=== PATIENT | male | born 1990 | race Caucasian/White ===

== ENCOUNTER 2019-01-22 01:48 | Emergency (ER) | payer OTHER, SELFPAY ==
[~2019-01-22] VITALS: Ht 165.1 cm; Wt 71.7 kg
[2019-01-22] MEDS ORDERED: medical marijuana (01:57)
[2019-01-22] MEDS ORDERED: ONDANSETRON 4MG/2ML VIAL (J2405) IV ONE (02:00)
[2019-01-22] MEDS ORDERED: ADACEL/BOOSTRIX VACCINE (DIPHTH/PERTUSS/ACELL/TETANUS)0.5ML SYR (90715) IM ONE (02:00)
[2019-01-22] MEDS ORDERED: ceFAZolin SOD 1 GM in D5W MINI-BAG PLUS 50 ML IV ONE (02:00)
[2019-01-22] MEDS ORDERED: albuterol inhaler INH (02:03)
[2019-01-22] MEDS: MORPHINE 4 MG/ML 1ML VIAL/SYRINGE (J2270) IV PRN ×2 (02:08→02:11)
[2019-01-22 02:17] LABS: HEMATOCRIT 41.9 % (42.0-52.0); HEMOGLOBIN 14.3 g/dl (13.5-17.5); MEAN CORPUSCULAR HEMOGLOBIN 30.3 pg (27.0-33.0); MEAN CORPUSCULAR HGB CONC 34.1 g/dl (32.0-36.5); MEAN CORPUSCULAR VOLUME 88.8 fl (80.0-96.0); PLATELET COUNT, AUTOMATED 330 10^3/uL (150-450); RED BLOOD COUNT 4.72 10^6/uL (4.30-6.10); WHITE BLOOD COUNT 11.9 10^3/uL (4.0-10.0)
[2019-01-22 02:36] LABS: BLOOD UREA NITROGEN 7 MG/DL (7-18); CALCIUM LEVEL 8.1 MG/DL (8.5-10.1); CARBON DIOXIDE LEVEL 21 MEQ/L (21-32); CHLORIDE LEVEL 109 MEQ/L (98-107); CREATININE FOR GFR 0.86 MG/DL (0.70-1.30); ETHYL ALCOHOL (ETHANOL) 0.133 % (0.000-0.010); GLOMERULAR FILTRATION RATE > 60.0 (>60); GLUCOSE, FASTING 227 MG/DL (70-100); POTASSIUM SERUM 3.5 MEQ/L (3.5-5.1); SODIUM LEVEL 142 MEQ/L (136-145)
[2019-01-22 03:00] VITALS: BP 133/62
[2019-01-22] MEDS ORDERED: HYDROMORPHONE HCL 0.5 MG/ 0.5 ML SYRINGE (J1170 PER 1) IV PRN (03:00)
[2019-01-22 03:03] LABS: ATYPICAL LYMPH 5 % (0-5); BASOPHILS 1 % (0-4); EOSINOPHILS 1 % (0-5); LYMPHOCYTES 44 % (16-52); MONOCYTES 5 % (0-8); NEUTROPHILS 44 % (35-75)
[2019-01-22 03:04] LABS: PLATELET ESTIMATE NORMAL (NORMAL)
--- NOTE | 2019-01-22 05:00 | REP ---
Clinical: Trauma. Technique: AP and lateral views of the right hand. Findings: Nondisplaced fracture at the base of the second digit proximal phalanx with overlying soft tissue swelling and subcutaneous emphysema further soft tissue injury along the second digit cannot be excluded. Impression: Nondisplaced fracture at the base of the proximal phalanx second digit along with the overlying soft tissue injuries. Electronically Signed by Marcio Hi MD 01/22/2019 04:51 A
[2019-01-23] MEDS ORDERED: HYDR-3713 PO ×2 (08:33→09:53)
[2019-01-23] MEDS ORDERED: IBUP-1114 PO (08:33)
[2019-01-23] MEDS ORDERED: CEPH25SS PO (08:33)
== END 2019-01-22 03:04 | disposition short-term general hospital (02) ==
LOC: M ED 01:48
DX: S62.641B Nondisplaced fracture of proximal phalanx of left index finger, initial encounter for open fracture (principal); T23.009A Burn of unspecified degree of unspecified hand, unspecified site, initial encounter; T31.0 Burns involving less than 10% of body surface; W39.XXXA Discharge of firework, initial encounter; Y92.099 Unspecified place in other non-institutional residence as the place of occurrence of the external cause; Y93.9 Activity, unspecified; Y99.9 Unspecified external cause status; Z79.899 Other long term (current) drug therapy; Z88.2 Allergy status to sulfonamides
CPT/HCPCS: 36415; 73120; 80048; 85025; 86850; 86900; 86901; 90471; 90715; 96374; 96375; 99284; G0480; J0690; J1170; J2270; J2405

== ENCOUNTER 2019-01-23 08:19 | Emergency (ER) | payer OTHER, SELFPAY ==
[~2019-01-23] VITALS: Ht 165.1 cm; Wt 69.8 kg
[~2019-01-23 08:19] MED LIST: albuterol inhaler INH; medical marijuana
[2019-01-23] MEDS ORDERED: CEPH25SS PO (08:33)
[2019-01-23] MEDS ORDERED: HYDR-3713 PO ×2 (08:33→09:53)
[2019-01-23] MEDS ORDERED: IBUP-1114 PO (08:33)
[2019-01-23 10:00] VITALS: BP 144/71
== END 2019-01-23 10:01 | disposition home or self-care (01) ==
LOC: M ED 08:19
DX: Z48.01 Encounter for change or removal of surgical wound dressing (principal); S62.641D Nondisplaced fracture of proximal phalanx of left index finger, subsequent encounter for fracture with routine healing; Y92.9 Unspecified place or not applicable; Z79.52 Long term (current) use of systemic steroids; Z88.2 Allergy status to sulfonamides